=== PATIENT | male | born 2005 | race Caucasian/White ===

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

== ENCOUNTER 2024-01-05 22:12 | Emergency (ER) | payer OTHER ==
[~2024-01-05] VITALS: Ht 180.3 cm; Wt 95.5 kg
[2024-01-05 23:19] VITALS: BP 127/87
== END 2024-01-05 23:19 | disposition home or self-care (01) ==
LOC: ED 22:12
DX: S63.602A Unspecified sprain of left thumb, initial encounter (principal); W18.30XA Fall on same level, unspecified, initial encounter; Y92.511 Restaurant or cafe as the place of occurrence of the external cause; Y99.0 Civilian activity done for income or pay